=== PATIENT | female | born 1965 | race Caucasian/White ===

== ENCOUNTER 2023-07-04 09:19 | Outpatient (CLI) | payer OTHER | END 2023-07-04 09:20 | disposition home or self-care (01) | LOC: SCSRAD 09:19 | PROVIDERS: ATTEND Family Medicine | DX: J18.9 Pneumonia, unspecified organism (principal); R09.89 Other specified symptoms and signs involving the circulatory and respiratory systems | CPT/HCPCS: 71046 ==

== ENCOUNTER 2023-07-17 16:10 | Inpatient (IN) | payer OTHER ==
[~2023-07-17 16:10] MED LIST: Iopamidol-370 76% 500 ML MDV (1 ML CHARGE) ONE
[2023-07-17 17:06] LABS: #Basophils 0.06 10x3/uL (0.0-0.2); %Basophils 0.3 % (0.0-1.0); %Eosinophils 1.4 % (0.0-10.0); %Lymphocytes 9.1 % (21.0-51.0); %Monocytes 3.6 % (0.0-10.0); %Neutrophils 83.7 % (42.0-75.0); Hematocrit 38.5 % (36.0-47.0); Hemoglobin 12.7 g/dL (12.0-16.0); Mean Corpuscular Hemoglobin 29.4 pg (27.0-31.0); Mean Corpuscular Volume 89.1 fL (78.0-98.0); Mean Platelet Volume 9.6 fL (7.4-10.4); Platelet Count 431 10x3/uL (130-400); RBC Distribution Width 13.9 % (11.5-14.5); Red Blood Cell (RBC) Count 4.32 mill/uL (4.20-5.40)
[2023-07-17 17:22] LABS: ALT (SGPT) 22 U/L (8-55); AST (SGOT) 45 U/L (5-34); Albumin 3.7 g/dL (3.5-5.0); Alkaline Phosphatase 133 U/L (40-110); Anion Gap 15 mmol/L (10-20); BUN (Urea Nitrogen) 17 mg/dL (9.8-20.1); Bilirubin, Total 0.3 mg/dL (0.2-1.2); Calc. Creatinine Clearance 0 mL/min (70-130); Calcium 9.4 mg/dL (7.8-10.44); Carbon Dioxide 24 mmol/L (22-29); Chloride 104 mmol/L (98-107); Estimated GFR 72; Globulin 3.9 g/dL (2.4-3.5); Glucose 119 mg/dL (70-105); Magnesium 1.2 mg/dL (1.6-2.6); Potassium 3.7 mmol/L (3.5-5.1); Protein, Total 7.6 g/dL (6.0-8.3); Sodium 139 mmol/L (136-145)
[2023-07-17 17:27] LABS: Troponin I Less than 0.010 ng/mL (< 0.028)
[2023-07-17] MEDS ORDERED: Magnesium 2 GM/50 ML BAG (IN WATER) ONE (18:14)
[2023-07-17] MEDS ORDERED: Cefepime 2 GM VIAL ONE (18:14)
[2023-07-17] MEDS ORDERED: Sodium Chloride 0.9% 100 ML ONE (18:14)
[2023-07-17 18:42] LABS: Influenza A by NAA Not Detected (NotDetected); Influenza B by NAA Not Detected (NotDetected); SARS-CoV-2 NAA Rapid Test Not Detected (NotDetected)
[2023-07-17 19:42] LABS: Bacteria/HPF None Seen HPF (None Seen); Bilirubin Negative (Negative); Blood, Urine 2+ (Negative); CAUTI Indications for Culture Pelvic or flank pain; Clarity Clear (Clear); Glucose, Urine (Dipstick) Normal (Negative); Ketone, Urine Negative (Negative); Leukocyte 25 Leu/uL (Negative); Nitrite Negative (Negative); Protein, Urine (Dipstick) Negative (Neg-Trace); RBC/HPF 21-50 HPF (0-3); Squamous Epithelial 0-3 HPF (0-3); Urobilinogen Normal mg/dL (Less than 2); pH, Urine 5.5 (5.0-9.0)
[2023-07-17 19:47] LABS: Specific Gravity, Urine 1.046 (1.002-1.036)
[2023-07-17 19:49] LABS: Urine Culture Reflex Yes Yes
[2023-07-17] MEDS ORDERED: Ipratropium/Albuterol 3 ML NEB NEB PRN (19:59)
[2023-07-17] MEDS ORDERED: Acetaminophen 325 MG TAB PO PRN (20:00)
[2023-07-17] MEDS ORDERED: Ondansetron ODT 4 MG TAB SL PRN (20:00)
[2023-07-17] MEDS ORDERED: Ondansetron PF 4 MG/2 ML Vial IVP PRN (20:00)
[2023-07-17 20:01] LABS: Lactic Acid 1.4 mmol/L (0.5-2.2)
[2023-07-17 20:10] LABS: Troponin I Less than 0.010 ng/mL (< 0.028)
[2023-07-17 21:20] VITALS: BMI 31.1
[2023-07-17] MEDS: methylPREDNISolone Sod Succ 40 MG VIAL IVP SCH (21:29)
[2023-07-17] MEDS: Vancomycin (BATCH) 2 GM in Premix 1 BAG IVPB SCH (21:30)
[2023-07-17] MEDS: Ipratropium/Albuterol 3 ML NEB NEB SCH (21:45)
[2023-07-18 00:24] LABS: Troponin I Less than 0.010 ng/mL (< 0.028)
[2023-07-18] MEDS: cefTRIAXone\\ROCEPHIN 1 GM in Sodium Chloride 0.9% 100 ML IVPB SCH (02:10)
[2023-07-18] MEDS: Colestipol 1 GM TAB PO SCH ×2 (02:11→20:26)
[2023-07-18] MEDS: Doxycycline 100 MG in Sodium Chloride 0.9% 100 ML IVPB SCH (03:16)
[2023-07-18 06:20] LABS: #Basophils 0.05 10x3/uL (0.0-0.2); #Eosinphils Less than 0.03 10x3/uL (0.0-0.7); %Basophils 0.3 % (0.0-1.0); %Eosinophils 0.1 % (0.0-10.0); %Lymphocytes 8.6 % (21.0-51.0); %Monocytes 1.5 % (0.0-10.0); %Neutrophils 87.7 % (42.0-75.0); Hematocrit 36.9 % (36.0-47.0); Hemoglobin 12.2 g/dL (12.0-16.0); Mean Corpuscular HGB CONC 33.1 g/dL (32.0-36.0); Mean Corpuscular Hemoglobin 29.8 pg (27.0-31.0); Mean Corpuscular Volume 90.2 fL (78.0-98.0); Mean Platelet Volume 9.8 fL (7.4-10.4); Platelet Count 377 10x3/uL (130-400); RBC Distribution Width 13.9 % (11.5-14.5); Red Blood Cell (RBC) Count 4.09 mill/uL (4.20-5.40)
[2023-07-18 06:58] LABS: Chloride 106 mmol/L (98-107); Potassium 3.9 mmol/L (3.5-5.1); Sodium 141 mmol/L (136-145)
[2023-07-18 06:59] LABS: Calcium 8.9 mg/dL (7.8-10.44); Glucose 124 mg/dL (70-105)
[2023-07-18 07:01] LABS: Anion Gap 13 mmol/L (10-20); Carbon Dioxide 26 mmol/L (22-29)
[2023-07-18 07:03] LABS: BUN (Urea Nitrogen) 13 mg/dL (9.8-20.1); Calc. Creatinine Clearance 123 mL/min (70-130); Estimated GFR 99
[2023-07-18] MEDS: Estradiol 1 MG TAB PO SCH (09:38)
[2023-07-18] MEDS: Enoxaparin 40 MG (0.4 mL) SYRINGE SC SCH (09:38)
[2023-07-18] MEDS: methylPREDNISolone Sod Succ 40 MG VIAL IVP SCH (09:40)
[2023-07-18] MEDS: busPIRone HCl 10 MG TAB PO SCH (09:41)
[2023-07-18] MEDS: medroxyPROGESTERone Acetate 2.5 MG TAB PO SCH (09:42)
[2023-07-18] MEDS: Escitalopram Oxalate 20 mg Tablet PO SCH (09:42)
[2023-07-18] MEDS: Losartan 25 MG TAB PO SCH (09:47)
[2023-07-18] MEDS: Pregabalin 75 MG CAP PO SCH (09:47)
[2023-07-18] MEDS: Hydrochlorothiazide 25 MG TAB PO SCH (09:48)
[2023-07-18] MEDS: Folic Acid 1 MG TAB PO SCH (09:48)
[2023-07-18 13:24] LABS: HIV (1/2) Antibody/Antigen Non-Reactive (NonReactive); HIV 1/2 INDEX 0.22 S/CO (<1.00)
[2023-07-18] MEDS: predniSONE 5 MG TAB PO SCH (16:58)
[2023-07-18] MEDS: Potassium Chloride 20 MEQ TAB PO SCH (17:04)
[2023-07-18] MEDS: Loperamide HCl 2 MG CAP PO PRN (17:31)
[2023-07-18] MEDS: Budesonide 0.25 MG/2 ML NEB INH SCH (18:54)
[2023-07-18] MEDS: Nortriptyline HCl 25 MG CAP PO SCH (20:26)
[2023-07-18] MEDS: traMADol HCl 50 MG TAB PO PRN (20:30)
[2023-07-19 04:16] LABS: #Basophils 0.04 10x3/uL (0.0-0.2); %Basophils 0.3 % (0.0-1.0); %Eosinophils 0.6 % (0.0-10.0); %Lymphocytes 15.8 % (21.0-51.0); %Monocytes 7.2 % (0.0-10.0); %Neutrophils 74.5 % (42.0-75.0); Hematocrit 34.6 % (36.0-47.0); Hemoglobin 11.4 g/dL (12.0-16.0); Mean Corpuscular HGB CONC 32.9 g/dL (32.0-36.0); Mean Corpuscular Hemoglobin 29.5 pg (27.0-31.0); Mean Corpuscular Volume 89.6 fL (78.0-98.0); Mean Platelet Volume 9.6 fL (7.4-10.4); Platelet Count 381 10x3/uL (130-400); RBC Distribution Width 13.9 % (11.5-14.5); Red Blood Cell (RBC) Count 3.86 mill/uL (4.20-5.40)
[2023-07-19 04:37] LABS: Anion Gap 13 mmol/L (10-20); BUN (Urea Nitrogen) 9 mg/dL (9.8-20.1); Calc. Creatinine Clearance 135 mL/min (70-130); Calcium 9.2 mg/dL (7.8-10.44); Carbon Dioxide 26 mmol/L (22-29); Chloride 107 mmol/L (98-107); Estimated GFR 101; Glucose 116 mg/dL (70-105); Potassium 3.6 mmol/L (3.5-5.1); Sodium 142 mmol/L (136-145)
[2023-07-19] MEDS: predniSONE 20 MG TAB PO SCH (08:44)
[2023-07-19 16:21] VITALS: BP 127/64; TEMP 97.4
[2023-07-23 12:27] LABS: ANA Symphony (Qualitative) Negative (Negative); ANA Symphony (Quantitative) 0.4 Ratio (< 0.7 Negative); dsDNA IgG Antibody 2.5 IU/mL (<10 Negative)
== END 2023-07-19 18:00 | disposition home or self-care (01) | DRG 205 ==
LOC: ERS 16:10 → 2NO 19:44
PROVIDERS: ADMIT Student in an Organized Health Care Education/Training Program; ATTEND Hospitalist
DX: J70.3 Chronic drug-induced interstitial lung disorders (principal); J96.01 Acute respiratory failure with hypoxia; N82.8 Other female genital tract fistulae; T45.1X5A Adverse effect of antineoplastic and immunosuppressive drugs, initial encounter; I10 Essential (primary) hypertension; E78.5 Hyperlipidemia, unspecified; K21.9 Gastro-esophageal reflux disease without esophagitis; J45.909 Unspecified asthma, uncomplicated; F41.9 Anxiety disorder, unspecified; F32.A Depression, unspecified; L40.50 Arthropathic psoriasis, unspecified; K52.9 Noninfective gastroenteritis and colitis, unspecified; R91.8 Other nonspecific abnormal finding of lung field; Z88.0 Allergy status to penicillin; Z88.2 Allergy status to sulfonamides; Z79.899 Other long term (current) drug therapy; Z98.891 History of uterine scar from previous surgery; Z98.890 Other specified postprocedural states
CPT/HCPCS: 36415; 71045; 71275; 80048; 80053; 81001; 83605; 83735; 83880; 84145; 84484; 85025; 85379; 86038; 86225; 86331; 86602; 86606; 86671; 87040; 87086; 87389; 93005; 94640; 96365; 96367; 96368; J0692; J0696; J1650; J2920; J3370; J3475; J3490; J7512; J7620; J7626; Q9967